=== PATIENT | female | born 1985 | race Caucasian/White ===

== ENCOUNTER 2020-04-10 06:48 | Outpatient (CLI) | payer OTHER, SELFPAY ==
[2020-04-10 07:34] LABS: Basophils Absolute Auto 0.1 K/mm3 (0.0-0.1); Basophils Percent Auto 1.2 % (0.2-1.2); Eosinophils Absolute Auto 0.1 K/mm3 (0-0.3); Eosinophils Percent Auto 3.2 % (0-4.4); Hematocrit 38.8 % (37.0-47.0); Hemoglobin 13.2 g/dL (12.0-15.0); Immature Granulocyte Absolute 0.01 K/mm3 (0.00-0.031); Immature Granulocyte Percent A 0.2 % (0-0.5); Lymphocytes Absolute Auto 1.23 K/mm3 (0.9-3.2); Lymphocytes Percent Auto 30.5 % (18.3-44.2); Mean Corpuscular Hemoglobin 34.6 pg (26-34); Mean Corpuscular Volume 101.8 fl (80-100); Mean Platelet Volume 11.4 fl (7.4-10.4); Monocytes Absolute Auto 0.4 K/mm3 (0.1-0.6); Monocytes Percent Auto 9.7 % (2.6-8.5); Neutrophils Absolute Auto 2.2 K/mm3 (1.3-6.7); Neutrophils Percent Auto 55.2 % (45.5-73.1); Platelet Count Result 160 k/mm3 (150-375); Red Blood Count 3.81 M/mm3 (4.2-5.4); Red Cell Distribution Width 11.8 % (11.5-14.5)
[2020-04-10 07:49] LABS: Alanine Aminotransferase 28 U/L (4-35); Alkaline Phosphatase 42 U/L (38-126); Aspartate Amino Transferase 37 U/L (14-36); Bilirubin,Total 1.6 mg/dL (0.2-1.3); Blood Urea Nitrogen 18 mg/dL (7-17); Calcium 8.9 mg/dL (8.4-10.2); Carbon Dioxide 26 mmol/L (22-30); Chloride 107 mmol/L (98-107); Estimated Glomerular Filt Rate > 60; Glucose 77 mg/dL (65-105); Potassium 3.8 mmol/L (3.4-5.0); Sodium 136 mmol/L (137-145)
[2020-04-10 08:34] LABS: Iron 155 ug/dL (37-170); Vitamin D 25 Hydroxy 60.4 ng/mL
[2020-04-10 08:54] LABS: Folic Acid 19.6 ng/mL (2.76->20)
[2020-04-12 15:48] LABS: Selenium 85 mcg/L (63-160)
[2020-04-12 23:10] LABS: Zinc 72 mcg/dL (60-130)
== END 2020-04-10 06:49 | disposition home or self-care (01) ==
DX: E70.0 Classical phenylketonuria (principal)
CPT/HCPCS: 36415; 80053; 82139; 82306; 82607; 82728; 82746; 83540; 84255; 84630; 85025

== ENCOUNTER 2020-04-17 06:37 | Outpatient (CLI) | payer OTHER, SELFPAY ==
--- NOTE | ~2020-04-17 | DEXA_ITS ---
Bone Density Report Name: Shannan Mccloud Age: 34 Sex: Female Ethnicity: White Date of : 1985 Indication: inflammatory bowel disease; PKU Referring Provider: PHYSICIAN NOT ON STAFF Study: Bone densitometry was performed. Exam Date: April 17, 2020 Accession number: [id number] Bone Density: Region BMD T-score Z-score Classification AP Spine (L1-L4) 1.102 0.5 0.6 Normal Femoral Neck (Left) 0.810 -0.3 -0.1 Normal Total Hip (Left) 0.924 -0.1 0.0 Normal Total Hip Bilateral Avg 0.915 -0.2 -0.1 Normal Femoral Neck (Right) 0.801 -0.4 -0.2 Normal Total Hip (Right) 0.904 -0.3 -0.2 Normal World Health Organization criteria for BMD impression classify patients as: Normal (T-score at or above -1.0), Osteopenia (T-score between -1.0 and -2.5), or Osteoporosis (T-score at or below -2.5). 10-year Fracture Risk: FRAX not reported because: Premenopausal woman All T-scores for Spine Total, Hip Total, Femoral Neck at or above -1.0 Clinical Information Provided by Patient: Has the following medical conditions: Inflammatory bowel diseases Patient maximum height was 68 Does not regularly consume dairy products Onset of menses at age 10 Premenopausal Number of children 1 Impression: The patient's bone mass is within expected range for age, gender and ethnicity. Discussion: BONE DENSITY IS WITHIN EXPECTED LIMITS FOR AGE, SEX AND RACE. Bone density is within expected limits for age, sex and race at all sites measured. The patient should follow a healthful lifestyle (good nutrition with adequate calcium and vitamin D, and appropriate weight-bearing exercise). Follow-Up: Consider repeating this study in 5 years or sooner if there is some new clinical indication. Reported by: FRITZ on 04/17/2020 8:38:00 AM. Reviewed, dictated and finalized at location AJames NICHOLSON
[2020-04-17 08:20] LABS: Free T4 Free Thyroxine 0.89 ng/mL (0.78-2.19)
[2020-04-20 17:38] LABS: Serotonin 220 ng/mL (56-244)
== END 2020-04-17 06:38 | disposition home or self-care (01) ==
PROVIDERS: PCP Nurse Practitioner Family; Referring Provider Nurse Practitioner Family
DX: F32.9 Major depressive disorder, single episode, unspecified (principal); E70.1 Other hyperphenylalaninemias
CPT/HCPCS: 36415; 77080; 84260; 84439; 84443

== ENCOUNTER 2022-10-16 12:12 | Outpatient (CLI) | payer OTHER, SELFPAY ==
[2022-10-16 12:26] LABS: Basophils Percent Auto 0.5 % (0.2-1.2); Eosinophils Absolute Auto 0.1 K/mm3 (0-0.3); Eosinophils Percent Auto 0.6 % (0-4.4); Hematocrit 43.8 % (37.0-47.0); Hemoglobin 14.5 g/dL (12.0-15.0); Immature Granulocyte Absolute 0.02 K/mm3 (0.00-0.031); Immature Granulocyte Percent A 0.3 % (0-0.5); Lymphocytes Absolute Auto 1.07 K/mm3 (0.9-3.2); Lymphocytes Percent Auto 13.5 % (18.3-44.2); Mean Corpuscular HGB Conc 33.1 g/dl (32-36); Mean Corpuscular Hemoglobin 33.7 pg (26-34); Mean Corpuscular Volume 101.9 fl (80-100); Mean Platelet Volume 9.7 fl (7.4-10.4); Monocytes Absolute Auto 0.5 K/mm3 (0.1-0.6); Monocytes Percent Auto 5.7 % (2.6-8.5); Neutrophils Absolute Auto 6.3 K/mm3 (1.3-6.7); Neutrophils Percent Auto 79.4 % (45.5-73.1); Platelet Count Result 251 k/mm3 (150-375); White Blood Count 7.9 K/mm3 (4.5-10.0)
[2022-10-16 12:37] LABS: Alanine Aminotransferase 28 U/L (6-35); Albumin Level 4.6 g/dL (3.5-5.1); Alkaline Phosphatase 58 U/L (38-126); Anion Gap 2 mmol/L (8-16); Aspartate Amino Transferase 36 U/L (14-36); Bilirubin,Total 2.1 mg/dL (0.2-1.3); Blood Urea Nitrogen 11 mg/dL (7-17); Calcium 9.3 mg/dL (8.4-10.2); Carbon Dioxide 32 mmol/L (22-30); Chloride 103 mmol/L (98-107); Cholesterol 225 mg/dL (0-200); Estimated Glomerular Filt Rate > 60; Glucose 98 mg/dL (65-110); HDL Direct 91 mg/dL; Potassium 4.1 mmol/L (3.4-5.0); Sodium 137 mmol/L (137-145); Triglycerides 120 mg/dL (<150)
[2022-10-16 12:48] LABS: LDL Cholesterol Direct 84 mg/dL
[2022-10-16 13:03] LABS: CRP < 0.5 mg/dL (<1.0)
[2022-10-16 17:09] LABS: Vitamin D 25 Hydroxy 74.9 ng/mL
[2022-10-16 17:24] LABS: Hepatitis B Surface Antigen Negative (Negative)
[2022-10-16 17:29] LABS: HAV RESULT Negative (Negative)
== END 2022-10-16 12:13 | disposition home or self-care (01) ==
LOC: ANHLAB 12:14
PROVIDERS: PCP Family Medicine; Visit Provider Nurse Practitioner Family
DX: Z00.00 Encounter for general adult medical examination without abnormal findings (principal); Z71.84 Encounter for health counseling related to travel; Z13.220 Encounter for screening for lipoid disorders; E55.9 Vitamin D deficiency, unspecified; E70.0 Classical phenylketonuria
CPT/HCPCS: 36415; 80053; 80061; 82306; 84443; 85025; 86140; 86709; 87340

== ENCOUNTER 2023-05-21 12:53 | Outpatient (CLI) | payer OTHER, SELFPAY ==
--- NOTE | ~2023-05-21 | MM_ITS ---
EXAMINATION: MM screening john BI w antonio HISTORY: Baseline screening mammogram TECHNIQUE: Craniocaudal and mediolateral oblique 3-D tomosynthesis images were obtained and synthetic 2-D images were generated. CAD analysis was submitted and interpreted. COMPARISON: None, baseline BREAST PARENCHYMAL COMPOSITION: The breasts are heterogeneously dense, which may obscure small masses . FINDINGS: No suspicious mass, calcification, or architectural distortion are identified in either essence ast to suggest malignancy. IMPRESSION: 1. No mammographic evidence of malignancy. 2. Recommend routine screening mammography in one year. BI-RADS Category 1: Negative Reviewed, dictated and finalized at location A.
== END 2023-05-21 12:54 | disposition home or self-care (01) ==
LOC: ANHIMG 12:54
PROVIDERS: PCP Family Medicine; Visit Provider Obstetrics & Gynecology
DX: Z12.31 Encounter for screening mammogram for malignant neoplasm of breast (principal)
CPT/HCPCS: 77063; 77067

== ENCOUNTER 2023-10-20 07:57 | Outpatient (CLI) | payer OTHER, SELFPAY ==
[2023-10-20 19:18] LABS: Eosinophils Absolute Auto 0.1 K/mm3 (0-0.3); Eosinophils Percent Auto 2.3 % (0-4.4); Hematocrit 41.7 % (37.0-47.0); Hemoglobin 13.4 g/dL (12.0-15.0); Immature Granulocyte Absolute 0.01 K/mm3 (0.00-0.031); Immature Granulocyte Percent A 0.3 % (0-0.5); Lymphocytes Absolute Auto 0.76 K/mm3 (0.9-3.2); Lymphocytes Percent Auto 24.7 % (18.3-44.2); Mean Corpuscular HGB Conc 32.1 g/dl (32-36); Mean Corpuscular Hemoglobin 33.2 pg (26-34); Mean Corpuscular Volume 103.2 fl (80-100); Mean Platelet Volume 10.5 fl (7.4-10.4); Monocytes Absolute Auto 0.4 K/mm3 (0.1-0.6); Monocytes Percent Auto 11.4 % (2.6-8.5); Neutrophils Absolute Auto 1.9 K/mm3 (1.3-6.7); Neutrophils Percent Auto 60.3 % (45.5-73.1); Platelet Count Result 210 k/mm3 (150-375); Red Blood Count 4.04 M/mm3 (4.2-5.4); Red Cell Distribution Width 11.8 % (11.5-14.5); White Blood Count 3.1 K/mm3 (4.5-10.0)
[2023-10-20 19:23] LABS: Alanine Aminotransferase 18 U/L (6-35); Albumin Level 3.8 g/dL (3.5-5.1); Alkaline Phosphatase 58 U/L (38-126); Anion Gap 5 mmol/L (8-16); Aspartate Amino Transferase 31 U/L (14-36); Bilirubin,Total 1.1 mg/dL (0.2-1.3); Blood Urea Nitrogen 13 mg/dL (7-17); Calcium 9.3 mg/dL (8.4-10.2); Carbon Dioxide 30 mmol/L (22-30); Chloride 104 mmol/L (98-107); Cholesterol 192 mg/dL (0-200); Estimated Glomerular Filt Rate > 60; Glucose 76 mg/dL (65-110); HDL Direct 68 mg/dL; Potassium 4.3 mmol/L (3.4-5.0); Sodium 139 mmol/L (137-145); Triglycerides 119 mg/dL (<150)
[2023-10-20 19:34] LABS: LDL Cholesterol Direct 81 mg/dL
[2023-10-20 19:36] LABS: Vitamin D 25 Hydroxy 63.9 ng/mL
[2023-10-20 20:58] LABS: Hemoglobin A1C 4.6 % (<5.7)
[2023-10-22 09:18] LABS: Methylmalonic Acid 194 nmol/L (87-318)
[2023-10-22 11:18] LABS: DHEA-Sulfate 158 mcg/dL (23-266)
== END 2023-10-20 07:58 | disposition home or self-care (01) ==
LOC: ANHGOSHLAB 07:59
PROVIDERS: PCP Family Medicine; Visit Provider Nurse Practitioner Family
DX: Z00.00 Encounter for general adult medical examination without abnormal findings (principal); R73.03 Prediabetes; E55.9 Vitamin D deficiency, unspecified; E70.0 Classical phenylketonuria; E53.8 Deficiency of other specified B group vitamins; Z13.220 Encounter for screening for lipoid disorders; Z13.29 Encounter for screening for other suspected endocrine disorder; Z82.0 Family history of epilepsy and other diseases of the nervous system
CPT/HCPCS: 36415; 80053; 80061; 82306; 82607; 82627; 83036; 83921; 84443; 85025

== ENCOUNTER 2024-03-29 08:25 | Outpatient (CLI) | payer OTHER, SELFPAY ==
[2024-03-29 12:42] LABS: Basophils Percent Auto 0.8 % (0.2-1.2); Eosinophils Absolute Auto 0.2 K/mm3 (0-0.3); Eosinophils Percent Auto 3.9 % (0-4.4); Hematocrit 41.7 % (37.0-47.0); Hemoglobin 13.4 g/dL (12.0-15.0); Immature Granulocyte Absolute 0.02 K/mm3 (0.00-0.031); Immature Granulocyte Percent A 0.4 % (0-0.5); Lymphocytes Absolute Auto 1.38 K/mm3 (0.9-3.2); Lymphocytes Percent Auto 28.2 % (18.3-44.2); Mean Corpuscular HGB Conc 32.1 g/dl (32-36); Mean Corpuscular Hemoglobin 33.1 pg (26-34); Mean Platelet Volume 10.5 fl (7.4-10.4); Monocytes Absolute Auto 0.4 K/mm3 (0.1-0.6); Neutrophils Absolute Auto 2.9 K/mm3 (1.3-6.7); Neutrophils Percent Auto 58.7 % (45.5-73.1); Platelet Count Result 268 k/mm3 (150-375); Red Blood Count 4.05 M/mm3 (4.2-5.4); Red Cell Distribution Width 11.8 % (11.5-14.5); White Blood Count 4.9 K/mm3 (4.5-10.0)
[2024-03-29 13:04] LABS: Alanine Aminotransferase 26 U/L (6-35); Alkaline Phosphatase 58 U/L (38-126); Anion Gap 4 mmol/L (4-12); Aspartate Amino Transferase 63 U/L (14-36); Bilirubin,Total 0.8 mg/dL (0.2-1.3); Blood Urea Nitrogen 10 mg/dL (7-17); Carbon Dioxide 30 mmol/L (22-30); Chloride 105 mmol/L (98-107); Estimated Glomerular Filt Rate > 60; Glucose 80 mg/dL (65-110); Potassium 4.8 mmol/L (3.4-5.0); Sodium 139 mmol/L (137-145)
[2024-03-29 13:11] LABS: Iron 68 ug/dL (37-170)
[2024-03-29 13:18] LABS: Prealbumin 27.7 mg/dL (17.6-36.0)
[2024-03-29 14:07] LABS: Folic Acid 15.8 ng/mL (2.76->20)
[2024-04-01 11:09] LABS: Vitamin D 1,25 (OH)2 Total 39 pg/mL (18-72); Vitamin D2 1,25 (OH)2 <8 pg/mL; Vitamin D3 1,25 (OH)2 39 pg/mL
[2024-04-02 11:48] LABS: Zinc 81 mcg/dL (60-130)
[2024-04-02 22:48] LABS: Selenium 99 mcg/L (63-160)
== END 2024-03-29 08:26 | disposition home or self-care (01) ==
LOC: ANHGOSHLAB 08:28
PROVIDERS: PCP Family Medicine
DX: E70.0 Classical phenylketonuria (principal)
CPT/HCPCS: 36415; 80053; 82139; 82607; 82652; 82746; 83540; 84134; 84255; 84630; 85025

== ENCOUNTER 2024-10-24 07:57 | Outpatient (CLI) | payer OTHER, SELFPAY ==
[2024-10-24 12:11] LABS: Basophils Percent Auto 0.9 % (0.2-1.2); Eosinophils Absolute Auto 0.2 K/mm3 (0-0.3); Eosinophils Percent Auto 3.5 % (0-4.4); Hematocrit 40.4 % (37.0-47.0); Hemoglobin 13.3 g/dL (12.0-15.0); Immature Granulocyte Absolute 0.01 K/mm3 (0.00-0.031); Immature Granulocyte Percent A 0.2 % (0-0.5); Lymphocytes Absolute Auto 1.19 K/mm3 (0.9-3.2); Lymphocytes Percent Auto 28.1 % (18.3-44.2); Mean Corpuscular HGB Conc 32.9 g/dl (32-36); Mean Corpuscular Hemoglobin 32.8 pg (26-34); Mean Corpuscular Volume 99.8 fl (80-100); Mean Platelet Volume 10.4 fl (7.4-10.4); Monocytes Absolute Auto 0.5 K/mm3 (0.1-0.6); Monocytes Percent Auto 11.3 % (2.6-8.5); Neutrophils Absolute Auto 2.4 K/mm3 (1.3-6.7); Platelet Count Result 225 k/mm3 (150-375); Red Blood Count 4.05 M/mm3 (4.2-5.4); Red Cell Distribution Width 12.5 % (11.5-14.5); White Blood Count 4.2 K/mm3 (4.5-10.0)
[2024-10-24 12:25] LABS: Alanine Aminotransferase 16 U/L (6-35); Albumin Level 3.9 g/dL (3.5-5.1); Alkaline Phosphatase 53 U/L (38-126); Anion Gap -1 mmol/L (4-12); Aspartate Amino Transferase 29 U/L (14-36); Blood Urea Nitrogen 11 mg/dL (7-17); Calcium 8.8 mg/dL (8.4-10.2); Carbon Dioxide 29 mmol/L (22-30); Chloride 108 mmol/L (98-107); Cholesterol 178 mg/dL (0-200); Estimated Glomerular Filt Rate > 60; Glucose 79 mg/dL (65-110); HDL Direct 56 mg/dL; Potassium 4.4 mmol/L (3.4-5.0); Sodium 136 mmol/L (137-145); Triglycerides 116 mg/dL (<150)
[2024-10-24 12:36] LABS: LDL Cholesterol Direct 83 mg/dL
== END 2024-10-24 07:58 | disposition home or self-care (01) ==
LOC: ANHGOSHLAB 07:59
PROVIDERS: PCP Nurse Practitioner Family; Visit Provider Student in an Organized Health Care Education/Training Program
DX: E70.0 Classical phenylketonuria (principal); Z13.0 Encounter for screening for diseases of the blood and blood-forming organs and certain disorders involving the immune mechanism; Z13.220 Encounter for screening for lipoid disorders; Z13.29 Encounter for screening for other suspected endocrine disorder
CPT/HCPCS: 36415; 80053; 80061; 84443; 85025

== ENCOUNTER 2024-12-25 09:35 | Outpatient (CLI) | payer OTHER, SELFPAY | END 2024-12-25 09:36 | disposition home or self-care (01) | LOC: ANHIMG 09:38 | PROVIDERS: PCP Obstetrics & Gynecology; Visit Provider Nurse Practitioner Family | DX: Z12.31 Encounter for screening mammogram for malignant neoplasm of breast (principal) | CPT/HCPCS: 77063; 77067 ==

== ENCOUNTER 2025-06-20 14:02 | Emergency (ER) | payer OTHER, SELFPAY ==
--- NOTE | ~2025-06-20 | XR_ITS ---
EXAMINATION: XR wrist RT min 3V DATE: 06/20/2025 14:47 INDICATION: Fall right wrist pain TECHNIQUE:4 images of the right wrist were obtained. COMPARISON: none FINDINGS: Bone mineralization is within normal limits. No fracture. No dislocation. Soft tissue swelling about the right wrist. No significant degenerative change. IMPRESSION: 1. No fracture. No dislocation. If symptoms persist or worsen, consider a short-term follow-up study or additional imaging for further assessment. Reviewed, dictated and finalized at location Q. IMPRESSION: 1. No fracture. No dislocation. If symptoms persist or worsen, consider a short-term follow-up study or additio nal imaging for further assessment.
--- NOTE | ~2025-06-20 | XR_ITS ---
XR lumbar spine 2-3V Indication: low back/sacrum/coccyx pain fall injury Comparison: None Findings: The vertebral heights are intact. No fracture or subluxation. The disc heights are intact. Soft tissues unremarkable Impression: No acute abnormality. Reviewed, dictated and finalized at location A. Impression: No acute abnormality.
--- NOTE | 2025-06-20 14:07 | ED.FALL ---
HPI - Fall General Chief Complaint: Fall Stated Complaint: fall at work Time Seen by Provider: 06/20/25 14:06 Source: patient Mode of arrival: ambulatory Limitations: no limitations History of Present Illness HPI Narrative: Shannan is a 40-year-old female patient presenting to the clinic today with complaints of falling at work injuring her tailbone and her right wrist. 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 Is reporting lower back/tailbone pain as well as right wrist pain. Last menstrual period was 3 weeks ago and she denies any concern for . Rates her pain currently a 5/10. Denies any saddle anesthesia or loss of block or bladder. Has not taken any Tylenol or ibuprofen for her symptoms. Denies hitting her head or any loss of consciousness. She denies any neck pain. Related Data Home Medications ?Medication ?Instructions ?Recorded ?Confirmed ?Last Taken ?Type multivitamin with iron 1 tablet PO DAILY 10/21/23 12/11/24 Unknown History sapropterin 100 mg oral powder 300 mg PO DAILY 09/06/24 12/11/24 Unknown History packet (Javygtor) sapropterin 500 mg oral powder 500 mg PO DAILY 09/06/24 12/11/24 Unknown History packet (Javygtor) Lactobacillus acidophilus 10 10,000 mmu cells PO DAILY 12/11/24 12/11/24 Unknown History billion cell capsule (Probiotic) ascorbic acid (vitamin C) 100 mg 100 mg PO DAILY 12/11/24 12/11/24 Unknown History tablet (Vitamin C) ashwagandha root extract 300 mg 395 mg PO 12/11/24 12/11/24 Unknown History tablet cetirizine 10 mg tablet (Aller-Mainor) 10 mg PO DAILY PRN 12/11/24 12/11/24 Unknown History cholecalciferol (vitamin D3) 10 10 mcg PO DAILY 12/11/24 12/11/24 Unknown History mcg (400 unit) capsule glutamine 500 mg capsule 500 mg PO DAILY 12/11/24 12/11/24 Unknown History (L-Glutamine) zinc citrate, zinc oxide 50 mg mg PO 12/11/24 12/11/24 Unknown History tablet Allergies Allergy/AdvReac Type Severity Reaction Status Date / Time No Known Allergies Allergy Mild Verified 06/20/25 14:21 Review of Systems Review of Systems: Pertinent positives per HPI. Patient denies any fever, chills, rash, headache, visual changes, dizziness, cough, runny nose, sore throat, shortness of breath, chest pain, palpitations, nausea, vomiting, diarrhea, constipation, abdominal pain, or any urinary issues. [facility] Past Medical History Medical History Encounter for annual general medical examination without abnormal findings in adult Family history of Parkinson's disease UTI (urinary tract infection) Depression PKU (phenylketonuria) Family History Family History Mother Family history of obesity Hypertension Family history of cardiovascular disease Family history of coronary artery disease, Onset Age: 58 Father Family history of alcoholism Depression Grandparent Family history of Parkinson's disease Family history of coronary artery disease, Onset Age: 45 Other Family history of malignant neoplasm Social History Social History Smoking status: Never smoker Second hand tobacco smoke exposure: No Alcohol intake: current Alcohol use details: occasionally Substance use: never Substance use type: does not use Lack of Transportation: No Lack of Food: Never True Current Housing: I Have Housing Concerned About Future Housing: No Difficulty Paying Gas/Electric Bills: No Difficulty Paying for Meds: No Currently Unemployed: No Education: Master's Degree or Higher Difficulty w/ Childcare or Family Care: No Living arrangements: with family Occupation/Education: occupation Gender identity (if verbalized by the patient): Female Agree to blood products: Yes Comments At the time of my signature, I reviewed and agree with the nursing past medical, surgical, social, and family history. There is no relevant family history pertinent to the patient complaint. Exam Narrative: General: Well-developed, well nourished, in no apparent distress Head: Normocephalic, atraumatic. Cardio: Regular rate and rhythm, s1 and s2 normal, no murmur appreciated. Resp: Clear to auscultation bilaterally, no rhonchi, rales, wheezing or rubs. Musculoskeletal: No deformity, no bruising or swelling noted, no tenderness to palpation over the cervical, thoracic, or upper lumbar spine, tenderness to palpation over the lower lumbar, sacrum, and coccyx, tender to palpation over the right radial wrist, pain with flexion and extension of the wrist, grossly normal range of motion, muscle strength strong and equal, peripheral pulse strong, no edema, no cyanosis, slow cautious gait and station Course Course Emergency Course: Portions of this record may have been created with voice recognition software. Level of Care: Express Care Visit Vital Signs Vital signs: Vital Signs Temperature 37.3 C 06/20/25 14:16 Pulse Rate 101 H 06/20/25 14:16 Respiratory Rate 18 06/20/25 14:16 Blood Pressure 128/74 06/20/25 14:16 Pulse Oximetry 100 06/20/25 14:16 Oxygen Delivery Room Air 06/20/25 14:16 Temperature 37.3 C 06/20/25 14:16 Pulse Rate 101 H 06/20/25 14:16 Respiratory Rate 18 06/20/25 14:16 Blood Pressure 128/74 06/20/25 14:16 Pulse Oximetry 100 06/20/25 14:16 Oxygen Delivery Room Air 06/20/25 14:16 Vital signs reviewed MDM - Fall MDM Narrative Medical decision making narrative: At the time of visit patient is resting comfortably on the exam table. Patient appears to be nontoxic. Complaints of falling at work injuring her tailbone and her right wrist. 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 Is reporting lower back/tailbone pain as well as right wrist pain. Last menstrual period was 3 weeks ago and she denies any concern for . Rates her pain currently a 5/10. Denies any saddle anesthesia or loss of block or bladder. Has not taken any Tylenol or ibuprofen for her symptoms. Denies hitting her head or any loss of consciousness. She denies any neck pain. X-ray of the lumbar spine and right wrist was ordered. Offered Toradol injection for pain and the patient declined at this time. Diagnostics: X-ray of the lumbar spine and right wrist was performed and negative for any fracture or malalignment. Plan: I suspect patient has a lumbar/coccyx contusion with a right wrist sprain. Kailash wrap was applied and sensation, circulation, and motion within normal limits after application. Patient has ice pack at home. Recommend a inflatable donut to sit on, panel/Motrin as needed for pain. Work note was given. Supportive measures were discussed with the patient and they voiced understanding discharge instructions and agrees to treatment plan. Return precautions reviewed Differential Diagnosis Differential diagnosis: Likely other (Elevated fall, coccyx fracture, tailbone pain, contusion, soft tissue injury, wrist sprain, wrist fracture) Imaging Data Radiologist's impression: ITS Impressions Lumbar Spine X-Ray 06/20/25 14:54 Impression: No acute abnormality. Wrist X-Ray 06/20/25 14:58 IMPRESSION: 1. No fracture. No dislocation. If symptoms persist or worsen, consider a short-term follow-up study or additional imaging for further assessment. Discharge Plan Discharge Clinical Impression: Contusion of coccyx Qualifiers: Encounter type: initial encounter Qualified Code(s): S30.0XXA - Contusion of lower back and pelvis, initial encounter Right wrist sprain Qualifiers: Encounter type: initial encounter Wrist sprain location: unspecified location Qualified Code(s): S63.501A - Unspecified sprain of right wrist, initial encounter Patient Disposition: Home Condition: Stable Instructions: Antibiotic Form, Coccyx Injury (ED), Contusion in Adults (ED), Wrist Sprain (ED) Additional Instructions: Rest, ice, elevate, and wear kailash wrap as directed Tylenol/motrin for pain as discussed. Apply ice to the affected areas for 20 minutes at a time 20 minutes on/20 minutes off for the next 24-48 hours and then may switch to heat May use a inflatable donut to sit on to help alleviate pain of the coccyx when sitting Follow up with your PCP if symptoms persist more than 1 week. Patient Language: Hebrew Prescriptions: No Action sapropterin [Javygtor] 100 mg powder in packet 300 mg PO DAILY sapropterin [Javygtor] 500 mg powder in packet 500 mg PO DAILY Adacel(Tdap Adolesn/Adult)(PF) 2 Lf-(2.5-5-3-5 mcg)-5Lf/0.5 mL syringe 0.5 ml IM ONCE Qty: 1 0RF Vitamin C 100 mg tablet 100 mg PO DAILY cholecalciferol (vitamin D3) 10 mcg (400 unit) capsule 10 mcg PO DAILY zinc citrate, zinc oxide 50 mg tablet PO cetirizine [Aller-Mainor] 10 mg tablet 10 mg PO DAILY PRN ashfelicitasgandha root extract 300 mg tablet 395 mg PO Probiotic 10 billion cell capsule 10,000 mmu cells PO DAILY L-Glutamine 500 mg capsule 500 mg PO DAILY multivitamin with iron Tablet 1 tablet PO DAILY citalopram 20 mg tablet See Rx Instructions .ROUTE .COMPLEX Qty: 90 1RF Dose Instruction: TAKE 1 TABLET BY MOUTH DAILY Rx Instructions: TAKE 1 TABLET BY MOUTH DAILY Follow-up/Referrals: Evelyne Denton NP [Primary Care Provider, Family Practice] Stand Alone Forms: Work/School Release IP Time of Disposition: 15:17 Quality NIHSS Nursing Documentation ED NIHSS nursing documentation: reviewed/agree
[2025-06-20 14:16] VITALS: BP 128/74; PULSE 101; RESP 18; TEMP 37.3; O2SAT 100
== END 2025-06-20 15:32 | disposition home or self-care (01) ==
PROVIDERS: Emergency Provider Nurse Practitioner Family; PCP Nurse Practitioner Family
DX: S30.0XXA Contusion of lower back and pelvis, initial encounter (principal); S63.501A Unspecified sprain of right wrist, initial encounter; W19.XXXA Unspecified fall, initial encounter; Y99.0 Civilian activity done for income or pay
CPT/HCPCS: 72100; 73110; 99214; G0463